=== PATIENT | male | born 1995 | race Caucasian/White ===

== ENCOUNTER 2020-01-27 21:28 | Emergency (ER) | payer OTHER ==
[~2020-01-27] VITALS: Ht 182.9 cm; Wt 95.5 kg
[2020-01-27 21:34] VITALS: BP 146/81; TEMP 97.6
[2020-01-27] MEDS ORDERED: XANAX 0.5MG0.5 MG PO (21:37)
[2020-01-27] MEDS ORDERED: WELLBUTRIN SR150 M1 PO (21:37)
[2020-01-27] MEDS ORDERED: NORFLEX 10100 MG/TAB PO (22:33)
[2020-01-27] MEDS ORDERED: PERCOCET 325 MG1 TA2 PO (22:33)
[2020-01-27] MEDS ORDERED: NAPROXEN 3375 MG/TAB PO (22:33)
[2020-01-27 23:00] VITALS: PULSE 73
== END 2020-01-27 23:00 | disposition home or self-care (01) ==
LOC: COL.ER 21:28
DX: M54.17 Radiculopathy, lumbosacral region (principal); M54.5 Low back pain; G89.29 Other chronic pain; F17.210 Nicotine dependence, cigarettes, uncomplicated
CPT/HCPCS: J1885; J2360

== ENCOUNTER → 2020-02-08 | Outpatient (CLI) | payer OTHER ==
[~2020-02-08] VITALS: Ht 182.9 cm; Wt 85.5 kg
[~2020-02-08] MED LIST: NAPROXEN 3375 MG/TAB PO; NORCO 325 MG-51 TAB PO; NORFLEX 10100 MG/TAB PO; PERCOCET 325 MG1 TA2 PO; WELLBUTRIN SR150 M1 PO; XANAX 0.5MG0.5 MG PO
[2020-02-08 12:58] VITALS: BP 143/91; PULSE 75
[2020-02-08 13:34] VITALS: BP 151/84; PULSE 71
== END ==
LOC: COL.RAD 12:42
DX: M51.26 Other intervertebral disc displacement, lumbar region (principal)
CPT/HCPCS: J3301

== ENCOUNTER 2021-12-31 02:15 | Emergency (ER) | payer OTHER ==
[~2021-12-31] VITALS: Ht 180.3 cm; Wt 81.8 kg
[2021-12-31 02:19] VITALS: TEMP 97.7
[2021-12-31 03:22] LABS: TRICYCLIC ANTIDEPRESS URINE NEGATIVE
[2021-12-31 04:00] VITALS: BP 116/76; PULSE 71
== END 2021-12-31 04:04 | disposition home or self-care (01) ==
LOC: COL.ER 02:15
PROVIDERS: Personal Emergency Response Attendant
DX: S51.811A Laceration without foreign body of right forearm, initial encounter (principal); F17.290 Nicotine dependence, other tobacco product, uncomplicated; Z28.310 Unvaccinated for COVID-19; W26.9XXA Contact with unspecified sharp object(s), initial encounter